=== PATIENT | male | born 1995 | race Hispanic/Latino ===

== ENCOUNTER 2018-06-28 14:27 | Emergency (ER) | payer BC, MEDICAID ==
[2018-06-28] MEDS ORDERED: Ketorolac Tromethamine 60 MG/2 ML VIAL ONE (15:12)
[2018-06-28] MEDS ORDERED: Lidocaine 1% w/Epinephrine 1:100K 30 ML VIAL ONE (15:14)
--- NOTE | 2018-06-28 15:35 | RAD ---
LEFT KNEE 4 VIEWS: Date: 06/28/18 HISTORY: Left knee injury. FINDINGS: Joint spaces are preserved. No acute fracture, dislocation, or fluid distention of the suprapatellar bursa. IMPRESSION: No acute osseous abnormalities are demonstrated. POS: [facility] A
== END 2018-06-28 16:40 | disposition home or self-care (01) ==
LOC: MADERS 14:27
DX: S81.002A Unspecified open wound, left knee, initial encounter (principal); V49.9XXA Car occupant (driver) (passenger) injured in unspecified traffic accident, initial encounter
CPT/HCPCS: 12001; 96372; J1885; J2001

== ENCOUNTER 2018-11-02 13:27 | Emergency (ER) | payer BC ==
[2018-11-02] MEDS ORDERED: Ibuprofen 800 MG TAB ONE (13:35)
== END 2018-11-02 13:45 | disposition home or self-care (01) ==
LOC: MADERS 13:27
DX: J11.1 Influenza due to unidentified influenza virus with other respiratory manifestations (principal)
CPT/HCPCS: 99283

== ENCOUNTER 2020-02-20 17:09 | Emergency (ER) | payer BC, OTHER ==
[2020-02-22 11:59] LABS: SARS-CoV-2 MS2 Positive; SARS-CoV-2 N Gene Positive; SARS-CoV-2 S Gene Positive; SARS-CoV-2 orf1ab Positive
== END 2020-02-20 17:55 | disposition home or self-care (01) ==
LOC: MADERS 17:09
DX: U07.1 COVID-19 (principal)
CPT/HCPCS: 87635; 99283; U0003

== ENCOUNTER 2020-12-04 23:20 | Emergency (ER) | payer BC | END 2020-12-04 23:55 | disposition home or self-care (01) | LOC: MADERS 23:20 | DX: L23.7 Allergic contact dermatitis due to plants, except food (principal) | CPT/HCPCS: 99282 ==

== ENCOUNTER 2021-09-15 20:59 | Emergency (ER) | payer BC ==
[2021-09-16 15:28] LABS: SARS-CoV-2 PCR by NAA Not Detected (NotDetected)
== END 2021-09-15 22:00 | disposition home or self-care (01) ==
LOC: MADERS 20:59
DX: R09.81 Nasal congestion (principal); R05.9 Cough, unspecified; Z20.822 Contact with and (suspected) exposure to COVID-19
CPT/HCPCS: 99283; U0003; U0005

== ENCOUNTER 2023-02-06 17:15 | Outpatient (CLI) | payer BC, OTHER | END 2023-02-06 17:16 | disposition home or self-care (01) | LOC: MADRAD 17:15 | PROVIDERS: ATTEND Nurse Practitioner Family | DX: M54.16 Radiculopathy, lumbar region (principal) | CPT/HCPCS: 72110 ==

== ENCOUNTER 2024-10-25 14:56 | Emergency (ER) | payer BC, SELFPAY ==
[2024-10-25] MEDS ORDERED: Loratadine 10 MG TAB ONE (15:46)
[2024-10-25] MEDS ORDERED: predniSONE 20 MG TAB ONE (15:46)
== END 2024-10-25 16:05 | disposition home or self-care (01) ==
LOC: MADERS 14:56
DX: L23.7 Allergic contact dermatitis due to plants, except food (principal); H05.223 Edema of bilateral orbit
CPT/HCPCS: 99283; J7512